=== PATIENT | male | born 1975 | race American Indian/Alaskan Native ===

== ENCOUNTER 2018-09-01 15:42 | Emergency (ER) | payer SELFPAY ==
[2018-09-01 16:12] VITALS: BP 132/87
--- NOTE | 2018-09-01 17:07 | XRay Report ---
FINAL REPORT EXAM: XR FOOT 3+V LT HISTORY: PAIN SP FALL TECHNIQUE: 3 views Left foot PRIORS: None. FINDINGS: There is soft tissue gas seen within the dorsal soft tissues of the foot medial aspect and along the base of the great toe. No fracture or dislocation identified. Joint spaces are within normal limits. No erosive bony change identified. No bony lesions are identified. IMPRESSION: Soft tissue gas. Please correlate with physical findings for soft tissue injury or evidence for infec tion. No additional acute abnormality
[2018-09-01] MEDS ORDERED: BOOSTRIX IM ONE (19:39)
[2018-09-01] MEDS ORDERED: ULTRAM PO ONE (19:39)
--- NOTE | 2018-09-01 19:44 | Emergency Department Report ---
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 3 hrs ago states initial bleeding but controlled via direct pressure on scene pain with ambulation and weight bearing there is no numbness no tingling no deformity mild swelling Onset/Timin -: hour(s) Extremity Location: Left: Foot Place: work Patient Tetanus UTD: No Context: accidental Associated Symptoms: pain Treatments Prior to Arrival: bandage (direct pressure ) - Related Data Previous Rx's Medication Instructions Recorded Last Taken Type cephALEXin [Keflex] 500 mg PO Q8HR #30 cap 09/01/18 Unknown Rx traMADol [Ultram] 50 mg PO Q6HR PRN #12 tablet 09/01/18 Unknown Rx Allergies Allergy/AdvReac Type Severity Reaction Status Date / Time No Known Allergies Allergy Unverified 09/01/18 16:12 ED Review of Systems ROS: Stated complaint: CUT FOOT/INJURY/PAIN Other details as noted in HPI Constitutional: denies: chills, fever Eyes: denies: eye pain, eye discharge, vision change ENT: denies: ear pain, throat pain Respiratory: denies: cough, shortness of breath, wheezing Cardiovascular: denies: chest pain, palpitations Endocrine: no symptoms reported Gastrointestinal: denies: abdominal pain, nausea, diarrhea Genitourinary: denies: urgency, dysuria Musculoskeletal: other (foot pain abrasion ) Skin: as per HPI, other (abrasion as above ) Neurological: denies: headache, weakness, paresthesias Psychiatric: denies: anxiety, depression Hematological/Lymphatic: denies: easy bleeding, easy bruising ED Past Medical Hx - Past Medical History Previous Medical History?: No - Surgical History Past Surgical History?: No - Social History Smoking Status: Never Smoker - Medications Home Medications: Home Medications Medication Instructions Recorded Confirmed Last Taken Type cephALEXin [Keflex] 500 mg PO Q8HR #30 cap 09/01/18 Unknown Rx traMADol [Ultram] 50 mg PO Q6HR PRN #12 tablet 09/01/18 Unknown Rx ED Physical Exam - General Limitations: No Limitations General appearance: alert, in no apparent distress - Head Head exam: Present: atraumatic, normocephalic - Eye Eye exam: Present: normal appearance - ENT ENT exam: Present: mucous membranes moist - Neck Neck exam: Present: normal inspection - Respiratory Respiratory exam: Present: normal lung sounds bilaterally - Cardiovascular Cardiovascular Exam: Present: regular rate, normal rhythm. Absent: systolic murmur, diastolic murmur, rubs, gallop - GI/Abdominal GI/Abdominal exam: Present: soft, normal bowel sounds - Rectal Rectal exam: Present: deferred - Extremities Exam Extremities exam: Present: tenderness (left dorsal foot abrasion pain mild swelling distal pulses intact rom intact no deformity ), normal capillary refill. Absent: pedal edema, calf tenderness - Expanded Lower Extremity Exam Left Foot/Toe exam: Present: full ROM, tenderness, swelling, abrasion. Absent: laceration, ecchymosis, deformity, crepidus, dislocation, erythema, amputation, puncture wound, foreign body, calcaneal tenderness, tenderness at base of 5th metatarsal, nail avulsion, subungual hematoma Neuro vascular tendon exam: Present: no vascular compromise. Absent: motor deficit, sensory deficit, tendon deficit, foot drop Gait: Positive: observed and limited by pain - Back Exam Back exam: Present: normal inspection, full ROM. Absent: tenderness - Neurological Exam Neurological exam: Present: alert, oriented X3, CN II-XII intact, reflexes normal - Psychiatric Psychiatric exam: Present: normal affect, normal mood - Skin Skin exam: Present: warm, dry, normal color, abrasion. Absent: rash ED Course Vital Signs 09/01/18 16:09 Temperature 98.5 F Pulse Rate 89 Respiratory 18 Rate Blood Pressure 132/87 O2 Sat by Pulse 97 Oximetry ED Medical Decision Making - Radiology Data Radiology results: report reviewed, image reviewed FINDINGS: There is soft tissue gas seen within the dorsal soft tissues of the foot medial aspect and along the base of the great toe. No fracture or dislocation identified. Joint spaces are within normal limits. No erosive bony change identified. No bony lesions are identified. IMPRESSION: Soft tissue gas. Please correlate with physical findings for soft tissue injury or evidence for infection. 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 ED Disposition Clinical Impression: Abrasion foot/toe Qualifiers: Encounter type: initial encounter Laterality: left Qualified Code(s): S90.812A - Abrasion, left foot, initial encounter Foot sprain Qualifiers: Encounter type: initial encounter Laterality: left Qualified Code(s): S93.602A - Unspecified sprain of left foot, initial encounter Disposition: DC-01 TO HOME OR SELFCARE Is pt being admited?: No Does the pt Need Aspirin: No Condition: Stable Instructions: Abrasion (ED) Prescriptions: cephALEXin [Keflex] 500 mg PO Q8HR #30 cap traMADol [Ultram] 50 mg PO Q6HR PRN #12 tablet PRN Reason: Pain Referrals: PRIMARY CAREMD [Primary Care Provider] - 3-5 Days MICH TAVAREZ MD [Staff Physician] - 3-5 Days Forms: Work/School Release Form(ED) Time of Disposition: 19:51
== END 2018-09-01 21:00 | disposition home or self-care (01) ==
LOC: ED 15:42
DX: S90.812A Abrasion, left foot, initial encounter (principal); X58.XXXA Exposure to other specified factors, initial encounter; Y93.89 Activity, other specified; Y92.69 Other specified industrial and construction area as the place of occurrence of the external cause; Y99.8 Other external cause status
CPT/HCPCS: 36415; 90471; 90715; 99283